=== PATIENT | male | born 1960 | race Caucasian/White ===

== ENCOUNTER 2019-01-26 16:38 | Emergency (ER) | payer BC ==
[~2019-01-26] VITALS: Ht 177.8 cm; Wt 113.6 kg
[2019-01-26 16:54] VITALS: Ht 177.8 cm; Wt 113.6 kg
[2019-01-26] MEDS ORDERED: AUGMENTIN 875-11 TAB PO (18:11)
[2019-01-26 18:36] VITALS: BP 128/72
== END 2019-01-26 18:36 | disposition home or self-care (01) ==
LOC: D.ER 16:38
DX: J32.9 Chronic sinusitis, unspecified (principal); Z72.0 Tobacco use